=== PATIENT | male | born 1965 | race Caucasian/White ===

== ENCOUNTER 2018-05-14 10:37 | Emergency (ER) | payer MEDICARE, MEDICAID ==
--- NOTE | 2018-05-14 10:58 | ED ---
Psychiatric Complaint - HPI Summary HPI Summary: This patient is a 53 year old M BIB IPD to [facility] due to an argument with his that occurred this morning after drinking a 12 pack of beer. He states the police were called and was taken to the ED. Denies SI and anxiety. Patient has no medical complaints at this time. - History Of Current Complaint Chief Complaint: EDMentalHealth Time Seen by Provider: 05/14/18 10:47 Hx Obtained From: Patient Onset/Duration: Sudden Onset Aggravating Factor(s): Alcohol Use Associated Signs And Symptoms: Positive: Negative Has Suicidal: Denies: Thoughts - Allergies/Home Medications Allergies/Adverse Reactions: Allergies Allergy/AdvReac Type Severity Reaction Status Date / Time meperidine [From Demerol] Allergy Severe GI Upset Verified 05/14/18 10:44 morphine Allergy Severe GI Upset Verified 05/14/18 10:44 PMH/Surg Hx/FS Hx/Imm Hx Endocrine/Hematology History: Reports: Hx Anemia Respiratory History: Reports: Hx Asthma EENT History: Denies: Hx Deafness Infectious Disease History: No Infectious Disease History: Denies: Traveled Outside the [place] in Last 30 Days - Family History Known Family History: Positive: Hypertension - Social History Lives: With Family Alcohol Use: Weekly Alcohol Amount: "12 beers once a week" Review of Systems Negative: Fever Psychological: Other - recent argument Negative: Anxious All Other Systems Reviewed And Are Negative: Yes Physical Exam - Summary Physical Exam Summary: General: well-appearing, no pain distress Skin: warm, color reflects adequate perfusion, dry Head: normal Eyes: EOMI, CATIA ENT: normal Neck: supple, nontender Respiratory: CTA, breath sounds present Cardiovascular: RRR Abdomen: soft, nontender Bowel: present Musculoskeletal: normal, strength/ROM intact Neurological: sensory/motor intact, A&O x3 Psychological: affect/mood appropriate Triage Information Reviewed: Yes Vital Signs On Initial Exam: Initial Vitals Temp Pulse Resp BP Pulse Ox 100.1 F 130 16 152/92 96 05/14/18 10:38 05/14/18 10:38 05/14/18 10:38 05/14/18 10:38 05/14/18 10:38 Vital Signs Reviewed: Yes Diagnostics - Vital Signs Vital Signs Temp Pulse Resp BP Pulse Ox 05/14/18 10:38 100.1 F 130 16 152/92 96 - Laboratory Result Diagrams: 05/14/18 10:54 05/14/18 10:54 Lab Statement: Any lab studies that have been ordered have been reviewed, and results considered in the medical decision making process. Course/Dx - Course Course Of Treatment: Mental Health services informed me at 17:15 that the patient will be discharged with a diagnosis of alcohol abuse disorder. - Differential Dx/Clinical Impression Provider Diagnosis: Alcohol abuse with alcohol-induced disorder Discharge - Sign-Out/Discharge Documenting (check all that apply): Patient Departure - Discharge Plan Condition: Stable Disposition: HOME Patient Education Materials: Anxiety (ED), Alcohol Use Disorder (ED) Referrals: [facility] [Outside] [facility] [Outside] [facility] [Outside] No Primary Care Phys,[facility] [Primary Care Provider] - - Billing Disposition and Condition Condition: STABLE Disposition: Home - Attestation Statements Document Initiated by Scribe: Yes Documenting Scribe: Vianey Teixeira Provider For Whom Scribe is Documenting (Include Credential): Laci Weinstein MD Scribe Attestation: Vianey Hernandez scribed for Laci Weinstein MD on 05/14/18 at 2157. Scribe Documentation Reviewed: Yes Provider Attestation: The documentation as recorded by the Vianey stern accurately reflects the service I personally performed and the decisions made by Laci nielsen MD
[2018-05-14 11:09] LABS: ABS Basophils 0.1 10^3/ul (0-0.2); ABS Eosinophils 0 10^3/ul (0-0.6); ABS Lymphocytes 2.2 10^3/ul (1.0-4.8); ABS Monocytes 0.4 10^3/ul (0-0.8); ABS Neutrophils 4.5 10^3/ul (1.5-7.7); ABS Nucleated RBC 0 10^3/ul; Eosinophil % 0.2 % (0-6); Hematocrit 44 % (42-52); Hemoglobin 15.6 g/dl (14.0-18.0); Lymphocyte % 30.5 % (25-47); Mean Corpuscular HGB Conc 36 g/dl (31-36); Mean Corpuscular Hemoglobin 35 pg (27-31); Mean Corpuscular Volume 99 fL (80-94); Nucleated Red Blood Cells % 0.1; Platelet Count 298 10^3/ul (150-450); Red Blood Count 4.41 10^6/ul (4.00-5.40); Red Cell Distribution Width 12 % (10.5-15); White Blood Count 7.3 10^3/ul (3.5-10.8)
[2018-05-14 11:19] LABS: EGFR Non-African American 81.3 (>60)
[2018-05-14 11:57] LABS: Urine Appearance Clear; Urine Blood 1+ (Negative); Urine Color Straw; Urine Ketones Negative (Negative); Urine Protein Negative (Negative); Urine Red Blood Cell Trace(0-2/hpf) (Absent); Urine Specific Gravity 1.004 (1.010-1.030); Urine Urobilinogen Negative (Negative); Urine White Blood Cell Absent (Absent)
[2018-05-14] MEDS ORDERED: Nicotine Inhaler* 10 MG AMP INH ONE (12:46)
[2018-05-14] MEDS ORDERED: Mouth Piece, Nicotine* 1 EACH CARTRIDGE INH PRN (12:46)
[2018-05-14 22:56] VITALS: BP 189/108
== END 2018-05-14 22:55 | disposition home or self-care (01) ==
LOC: ED 10:37
DX: F10.19 Alcohol abuse with unspecified alcohol-induced disorder (principal)
CPT/HCPCS: 36415; 80053; 80307; 80320; 80329; 81003; 81015; 84443; 85025; 99284; A9270-GY; G0480